=== PATIENT | male | born 1965 | race Caucasian/White ===

== ENCOUNTER 2021-04-14 10:53 | Emergency (ER) | payer OTHER ==
[2021-04-14 11:04] VITALS: TEMP 100.9
[2021-04-14 11:22] VITALS: RESP 18
[2021-04-14] MEDS ORDERED: ACETAMINOPHEN TAB 500 MG TAB PO STA (11:52)
[2021-04-14] MEDS ORDERED: IBUPROFEN 600 MG TAB PO STA (11:52)
--- NOTE | 2021-04-14 12:18 | XR ---
EXAMINATION TYPE: XR chest 2V DATE OF EXAM: 04/14/2021 COMPARISON: NONE HISTORY: Cough. TECHNIQUE: Frontal and lateral views of the chest are obtained. FINDINGS: There are bilateral multifocal increased opacities. No pleural effusion or pneumothorax s een bilaterally. The cardiac silhouette size is within normal limits. The osseous structures are in tact. IMPRESSION: Bilateral multifocal increased opacities consistent with covid-19 infection. Correlate c linically.
--- NOTE | 2021-04-14 12:27 | ED ---
General Adult HPI - General Chief complaint: Fever Stated complaint: Covid symptoms Time Seen by Provider: 04/14/21 11:29 Source: patient, RN notes reviewed Mode of arrival: ambulatory Limitations: no limitations - History of Present Illness Initial comments: 55-year-old male with a past medical history of hyperlipidemia presents to the emergency room for a chief complaint of wanting antibody infusion. Patient states he is COVID-19 positive. States he has been sick with congestion and a cough for about a week. He has also had fevers. He has not had any Motrin or Tylenol today. Patient had a positive at home test yesterday for COVID-19. Patient is not vaccinated. Patient reports he has a history of hyperlipidemia.Patient has no other complaints at this time including shortness of breath, chest pain, abdominal pain, nausea or vomiting, headache, or visual changes. - Related Data Previous Rx's Medication Instructions Recorded Benzonatate [Tessalon Perles] 200 mg PO Q8H PRN #15 capsule 04/14/21 guaiFENesin [Mucinex] 600 mg PO Q12HR PRN #20 tab 04/14/21 Allergies Allergy/AdvReac Type Severity Reaction Status Date / Time No Known Allergies Allergy Verified 04/14/21 11:04 Review of Systems ROS Statement: Those systems with pertinent positive or pertinent negative responses have been documented in the HPI. ROS Other: All systems not noted in ROS Statement are negative. Past Medical History Past Medical History: No Reported History, Hyperlipidemia History of Any Multi-Drug Resistant Organisms: None Reported Past Surgical History: No Surgical Hx Reported Past Psychological History: No Psychological Hx Reported Smoking Status: Never smoker Past Alcohol Use History: Daily Past Drug Use History: None Reported General Exam Limitations: no limitations General appearance: alert, in no apparent distress Head exam: Present: atraumatic Eye exam: Present: normal appearance, PERRL, EOMI. Absent: scleral icterus, conjunctival injection ENT exam: Present: normal exam, mucous membranes moist Neck exam: Present: normal inspection, full ROM. Absent: tenderness Respiratory exam: Present: normal lung sounds bilaterally. Absent: respiratory distress, wheezes Cardiovascular Exam: Present: regular rate, normal rhythm, normal heart sounds GI/Abdominal exam: Present: soft, normal bowel sounds. Absent: distended, tenderness Neurological exam: Present: alert Course Vital Signs 04/14/21 04/14/21 11:01 11:21 Temperature 100.9 F H Pulse Rate 110 H Respiratory 20 18 Rate Blood Pressure 150/94 O2 Sat by Pulse 97 Oximetry Medical Decision Making - Medical Decision Making Vitals Are stable. Patient is febrile. No respiratory distress. COVID-19 positive. Chest x-ray shows bilateral multifocal increased opacities consistent with COVID-19 infection. Patient given antibody infusion. He does qualify as he is unvaccinated and has a history of hyperlipidemia. Patient will be discharged home with strict return parameters. He will return here for any worsening symptoms and f/u with primary care. - Lab Data Lab Results 04/14/21 Range/Units 11:20 Coronavirus (PCR) Detected A (Not Detectd) Disposition Clinical Impression: COVID-19, Pneumonia due to COVID-19 virus Disposition: HOME SELF-CARE Condition: Good Instructions (If sedation given, give patient instructions): Fever in Adults (ED), Coronavirus Disease 2019 (COVID-19) Additional Instructions: Take medications as directed. Follow-up with your doctor. If you're having worsening symptoms such as shortness of breath return to the emergency room. Prescriptions: guaiFENesin [Mucinex] 600 mg PO Q12HR PRN #20 tab PRN Reason: Congestion Benzonatate [Tessalon Perles] 200 mg PO Q8H PRN #15 capsule PRN Reason: Cough Is patient prescribed a controlled substance at d/c from ED?: No Referrals: Petra Bates MD [Primary Care Provider] - 1-2 days Time of Disposition: 12:34
[2021-04-14] MEDS ORDERED: BAMLANIVIMAB (EUA) 700 MG, ETESEVIMAB (EUA) 1,400 MG in SODIUM CHLORIDE 0.9% 100 ML IVPB ONE (12:30)
[2021-04-14] MEDS ORDERED: SODIUM CHLORIDE 0.9% 50 ML IVPB ONE (13:00)
[2021-04-14 14:27] VITALS: BP 140/87; PULSE 86
== END 2021-04-14 14:27 | disposition home or self-care (01) ==
LOC: EC 10:53
DX: U07.1 COVID-19 (principal); J12.82 Pneumonia due to coronavirus disease 2019; E78.5 Hyperlipidemia, unspecified
CPT/HCPCS: 99283; M0245; 71046; 87635